=== PATIENT | male | born 1950 | race Two or more races ===

== ENCOUNTER 2019-04-09 06:30 | Day surgery (SDC) | payer OTHER | END 2019-04-09 12:10 | disposition home or self-care (01) | LOC: AMB-ENDOS 06:30 | DX: D18.1 Lymphangioma, any site (principal); K64.1 Second degree hemorrhoids ==

== ENCOUNTER 2019-11-01 09:02 | Outpatient (CLI) | payer OTHER | END 2019-11-01 09:14 | disposition home or self-care (01) | LOC: SONOGRAMA 09:02 | DX: E04.1 Nontoxic single thyroid nodule (principal) ==

== ENCOUNTER 2020-05-05 07:35 | Day surgery (SDC) | payer OTHER | END 2020-05-05 14:36 | disposition home or self-care (01) | LOC: AMB-ENDOS 07:35 | PROVIDERS: ATTEND Colon & Rectal Surgery | DX: K62.89 Other specified diseases of anus and rectum (principal); K64.1 Second degree hemorrhoids; Z20.828 Contact with and (suspected) exposure to other viral communicable diseases ==